=== PATIENT | female | born 1985 | race Caucasian/White ===

== ENCOUNTER 2024-07-28 18:57 | Emergency (ER) | payer SELFPAY ==
[2024-07-28 19:01] VITALS: BP 138/84
[2024-07-28 21:00] VITALS: BP 140/81
--- NOTE | 2024-07-29 01:41 | ED.GENMED ---
History of Present Illness
General
Chief Complaint: Alcohol Problem
Source: patient
Exam Limitations: none
Time Seen by Provider: 07/28/24 20:36
Nursing documentation reviewed up to this point in time: agreed with
History of Present Illness
History of Present Illness:
Patient was witnessed in parking lot visibly intoxicated, trying to get into her car. Police were called and she was then brought to ED. She admits to drinking wine all day. States she was here at the hospital visiting her father. he admits to
history of alcohol abuse. She states she is in a program and declines any further intervention today. She has no complaints
Past History
Past History
ED Past Medical History: None
Review of Systems
Review of Systems
Allergies reviewed?: Yes
All Other Systems: ROS reviewed and negative except as documented in HPI and ROS
Constitutional: Reports no symptoms
EENT: Reports no symptoms
Respiratory: Reports no symptoms
Cardiac: Reports no symptoms
ABD/GI: Reports no symptoms
: Reports no symptoms
Musculoskeletal: Reports no symptoms
Skin: Reports no symptoms
Neurological: Reports no symptoms
Psychiatric: Reports no symptoms
Phy Exam
General Physical Exam
General Presentation: no apparent distress
General age: appears stated age
General Skin: warm and dry
General Habitus: normal
General Mental: appears intoxicated
Cardiovascular Exam
Cardiovascular Exam: regular rate/rhythm
Neurological Exam
Neurological Exam: oriented x3 and appears intoxicated
Musculoskeletal Exam
Musculoskeletal Exam: full ROM and neuro vasc intact
Skin Exam
Skin Exam: normal color, warm/dry and no rash
Psychiatric Exam
Psychiatric Exam: other (intoxicated)
Scores
Withdrawal Assessment of Alcohol
Withdrawal Assessment Completed?: Not applicable
Course
Vital Signs
Initial and Last Documented VS:
Initial Vital Signs
Temp Pulse Resp BP Pulse Ox
98.0 F 121 20 138/84 126
07/28/24 19:01 07/28/24 19:01 07/28/24 19:01 07/28/24 19:01 07/28/24 19:01
Last Documented Vital Signs
Temp Pulse Resp BP Pulse Ox
98.0 F 95 18 140/81 126
07/28/24 19:01 07/28/24 21:00 07/28/24 21:00 07/28/24 21:00 07/28/24 19:01
*Critical Care Note
Total Time (30-74mins, 75-104mins- exclusive of procedures): Not Applicable
Update Note
Update Note:
Patient brought to ED by police after she was found in hospital parking lot attempting to get into her car while intoxicated. She admits to drinking, admits to alcohol abuse. She states she is currently in a program and she has declined any
intervention today in eD. Bcares and Crisis were offered to her but she declines. Mother arrived in ED and patient was discharged home in her care
ED Attending Note
-
Portions of this chart may have been created with voice recognition software.� Occasional wrong word or��sound alike� substitutions may have occurred due to the inherent limitations of voice recognition software.
Discharge Plan
Departure
Patient Disposition: Home (Routine Discharge)
Date of Disposition: 07/28/24
Time of Disposition: 22:28
Patient with high blood pressure during this ER visit?: No
Condition: Good
Covid-19: Not Applicable
Discharge Problem:
Intoxication
Instructions: Alcohol Use Disorder (DC)
Referrals:
UNKNOWN - PT DOES,NOT KNOW [Family Provider]
Interventions
Interventions:
*Risk Screen - Suicide Last Done: 07/28/24 22:00
*General Assessment Last Done: 07/28/24 19:01
*Neglect/Abuse Screening Last Done: 07/28/24 22:30
*ED- Fall Risk Assessment Last Done: 07/28/24 22:30
*Nursing Disposition Last Done: 07/28/24 22:30
ED- Neurological Assessment Last Done: 07/28/24 21:00
ED-Psychological Assessment Last Done: 07/28/24 21:00
Discharge Date and Time
Discharge Date/Time: 07/28/24 22:45
Print Language: YEMENI
== END 2024-07-28 22:45 | disposition home or self-care (01) ==
LOC: EMR 18:57
PROVIDERS: EMERGENCY PHYSICIAN Student in an Organized Health Care Education/Training Program
DX: F10.129 Alcohol abuse with intoxication, unspecified (principal)
CPT/HCPCS: 99282

== ENCOUNTER 2024-07-30 17:02 | Emergency (ER) | payer SELFPAY ==
[2024-07-30 17:05] VITALS: BP 152/108
[2024-07-30 17:34] LABS: % Basophils 1.1 % (0-2); % Eosinophils 0.1 % (0-6); % Immature Granulocytes 0.1 % (0-0.5); % Lymphocytes 31.3 % (20.5-51.1); % Monocytes 3.7 % (1.7-9.3); % Neutrophils 63.7 % (42.2-75.2); Absolute Basophils 0.1 10^3/uL (0-0.2); Absolute Lymphocytes 2.4 10^3/uL (1.2-3.4); Absolute Monocytes 0.3 10^3/uL (0.1-0.6); Absolute Neutrophils 4.8 10^3/uL (1.4-6.5); Hematocrit 42.2 % (37.0-47.0); Hemoglobin 15.1 g/dL (12.0-16.0); Mean Corp Hgb Conc. 35.8 g/dL (33.0-37.0); Mean Corpuscular Volume 92.3 fL (81.0-99.0); Mean Platelet Volume 8.2 fL (7.4-10.4); Nucleated Red Blood Cells % 0 %; Platelet Count 268 10^3/uL (130-400); Red Blood Cell Count 4.57 10^6/uL (4.20-5.40); Red Cell Dist. Width 13.1 % (11.5-14.5); White Blood Cell Count 7.5 10^3/uL (4.8-10.8)
[2024-07-30 17:43] LABS: HCG, Serum Qualitative Screen Negative
[2024-07-30 17:49] LABS: ALT (SGPT) 95 U/L (0-35); AST (SGOT) 64 U/L (14-36); Albumin 5.2 g/dl (3.5-5.0); Alkaline Phosphatase 73 U/L (38-126); Blood Urea Nitrogen 9 mg/dl (7-17); Calcium 10.1 mg/dl (8.4-10.2); Carbon Dioxide 19 mmol/L (22-30); Chloride 110 mmol/L (98-107); Glucose 83 mg/dl (70-99); Potassium 4.4 mmol/L (3.5-5.1); Sodium 148 mmol/L (135-145); Total Bilirubin 0.5 mg/dl (0.2-1.3); Total Protein 8.2 g/dl (6.3-8.2); eGFR > 60.00
[2024-07-30 18:03] LABS: Alcohol 441 mg/dl
--- NOTE | 2024-07-30 18:15 | ED.GENMED ---
History of Present Illness
General
Chief Complaint: Alcohol Problem
Time Seen by Provider: 07/30/24 18:02
History of Present Illness
History of Present Illness:
Patient is a 39-year-old woman with history of alcohol use presenting to the emergency department with concerns for alcohol intoxication. Patient brought in by mother. Mom states that patient was acting off. Patient was not forthcoming with how
much alcohol she drank the mom brought her in for further evaluation. She does have history of alcohol use and was at a rehab center in [place]. Per chart review patient was seen here few days ago as well for alcohol intoxication. Patient has no
complaints at this time but is not forthcoming with any information. Denies any drug use. denies taking any extra medication doses.
Past History
Past History
ED Past Medical History: None
Phy Exam
Physical Exam
Physical Exam:
GENERAL: Smells of alcohol
HEENT: normocephalic, extraocular movements intact, moist oral mucosa
NECK: normal inspection
RESPIRATORY: no respiratory distress, clear to auscultation bilaterally
CARDIOVASCULAR: regular rate and rhythm
ABDOMEN/: soft, non-distended, non-tender to palpation, no rebound or guarding
EXTREMITIES: non-tender, no edema/swelling
NEUROLOGIC: awake and alert, moves all extremities
SKIN: warm
Scores
Withdrawal Assessment of Alcohol
Withdrawal Assessment Completed?: Not applicable
Course
Orders/Labs/Results
Orders:
Orders
07/30/24 17:23
Test Result ONCE
07/30/24 17:26
Alcohol Urgent
CMP [Comprehensive Metabolic Panel] Urgent
Complete Blood Count/With Diff Urgent
HCG, Serum Qualitative Screen Urgent
Abnormal Lab Results
07/30/24
17:26
MCH 33.0 H pg
(27.0-31.0)
Sodium 148 H mmol/L
(135-145)
Chloride 110 H mmol/L
(98-107)
Carbon Dioxide 19 L mmol/L
(22-30)
AST 64 H U/L
(14-36)
ALT 95 H U/L
(0-35)
Albumin 5.2 H g/dl
(3.5-5.0)
Alcohol, Quantitative 441 H* mg/dl
07/30/24 17:26
07/30/24 17:26
Vital Signs
Initial and Last Documented VS:
Initial Vital Signs
Temp Pulse Resp BP Pulse Ox
97.6 F 136 16 152/108 98
07/30/24 17:05 07/30/24 17:05 07/30/24 17:05 07/30/24 17:05 07/30/24 17:05
Last Documented Vital Signs
Temp Pulse Resp BP Pulse Ox
97.6 F 136 16 152/108 98
07/30/24 17:05 07/30/24 17:05 07/30/24 17:05 07/30/24 17:05 07/30/24 17:05
MDM/Problems Addressed
Differential Diagnosis Includes:
Patient is a 39-year-old woman presenting to the emergency department with concern for intoxication. On arrival vitals are notable for hypertension and exam shows a woman who does smell of alcohol. Blood work was obtained prior to my evaluation
which does show a blood alcohol level of 441. Patient does admit to drinking alcohol though will not provide any additional details. She denies feeling as if she is going through withdrawal. Denies any SI or HI. I did offer her detox or rehab
which patient is going to think about it currently with her mother who is at bedside. Patient's mother at bedside does state that patient lives at home with them and does feel comfortable taking her home if she opts not to go to rehab.
*Critical Care Note
Total Time (30-74mins, 75-104mins- exclusive of procedures): Not Applicable
Update Note
Update Note:
On reevaluation patient would not like to talk to Kaylie. Mom will take patient home. Will discharge patient at this time
ED Attending Note
-
Portions of this chart may have been created with voice recognition software.� Occasional wrong word or��sound alike� substitutions may have occurred due to the inherent limitations of voice recognition software.
Discharge Plan
Departure
Patient Disposition: Home (Routine Discharge)
Date of Disposition: 07/30/24
Time of Disposition: 18:45
Patient with high blood pressure during this ER visit?: Yes
Discharge Problem:
Alcohol intoxication
Instructions: Alcohol Poisoning (DC)
Prescriptions:
No Action
amlodipine 5 mg Tablet
5 mg PO DAILY
Interventions
Interventions:
*Risk Screen - Suicide Last Done: 07/30/24 17:08
Discharge Date and Time
Print Language: GREEK
== END 2024-07-30 19:42 | disposition home or self-care (01) ==
LOC: EMR 17:02
PROVIDERS: Emergency Medicine; EMERGENCY PHYSICIAN Student in an Organized Health Care Education/Training Program
DX: F10.129 Alcohol abuse with intoxication, unspecified (principal); Y90.8 Blood alcohol level of 240 mg/100 ml or more
CPT/HCPCS: 99283; 80053; 82077; 84703; 85025